=== PATIENT | female | born 1995 | race Caucasian/White ===

== ENCOUNTER 2018-11-27 01:58 | Emergency (ER) | payer BC ==
[~2018-11-27] VITALS: Ht 160 cm; Wt 63.6 kg
[2018-11-27 02:06] VITALS: Ht 160 cm; Wt 63.6 kg
[2018-11-27] MEDS ORDERED: HYDROCODON-ACE1 EAC7 PO (02:45)
[2018-11-27] MEDS ORDERED: KEFLEX500 MG PO (02:45)
[2018-11-27 05:35] VITALS: BP 132/76
== END 2018-11-27 05:35 | disposition home or self-care (01) ==
LOC: D.ER 01:58
DX: S61.214A Laceration without foreign body of right ring finger without damage to nail, initial encounter (principal); Y04.2XXA Assault by strike against or bumped into by another person, initial encounter; Y93.89 Activity, other specified; Y92.89 Other specified places as the place of occurrence of the external cause; S93.402A Sprain of unspecified ligament of left ankle, initial encounter; S01.81XA Laceration without foreign body of other part of head, initial encounter